=== PATIENT | male | born 1980 | race American Indian/Alaskan Native ===

== ENCOUNTER 2018-06-15 19:11 | Inpatient (IN) | payer OTHER ==
[2018-06-15] MEDS ORDERED: Sodium Chloride 0.9% 1,000 ML IV ONE (20:13)
[2018-06-15] MEDS ORDERED: Sodium Chloride 0.9% 1,000 ML ONE (20:28)
--- NOTE | 2018-06-15 20:41 | C.PDOC ---
History Of Present Illness 37 year old male presents to the ED c/o 1 week vesicular rash that started behind his ear and scalp are. Patient states rash has gradually spread to his body to the level of his knees. Patient is also c/o vesicular ulcers in his mouth that have now resolved. Patient had viral syndrome 1 week ago. Patient denies recent travel, sick contacts, fever, chills. Time Seen by Provider: 06/15/18 19:57 Chief Complaint (Nursing): Abnormal Skin Integrity History Per: Patient History/Exam Limitations: no limitations Onset/Duration Of Symptoms: Days Current Symptoms Are (Timing): Still Present Location Of Injury: Right: Abdomen, Arm, Chest, Forearm, Knee, Leg, Left: Abdomen, Arm, Chest, Forearm, Knee, Leg Quality Of Symptoms: Painful, Itching Recent travel outside of the [place]: No Additional History Per: Patient Past Medical History Reviewed: Historical Data, Nursing Documentation, Vital Signs Vital Signs: Last Vital Signs Temp 102.7 F H 06/15/18 19:44 Pulse 118 H 06/15/18 19:25 Resp 19 06/15/18 19:25 BP 142/85 06/15/18 19:25 Pulse Ox 99 06/15/18 22:24 - Medical History PMH: No Chronic Diseases Surgical History: No Surg Hx Family History: States: Unknown Family Hx - Social History Hx Alcohol Use: Yes Hx Substance Use: No - Immunization History Hx Tetanus Toxoid Vaccination: No Hx Influenza Vaccination: No Hx Pneumococcal Vaccination: No Review Of Systems Constitutional: Negative for: Fever, Chills Cardiovascular: Negative for: Chest Pain, Palpitations Respiratory: Negative for: Cough, Shortness of Breath Gastrointestinal: Negative for: Nausea, Vomiting, Abdominal Pain Skin: Positive for: Rash Neurological: Negative for: Weakness, Numbness Physical Exam - Physical Exam Appears: Non-toxic, No Acute Distress Skin: Warm, Dry, Rash (Impressive vesucalr rash in the 100s that starts on the head and extends all the way to the knees) Head: Atraumatic, Normacephalic Eye(s): bilateral: Normal Inspection, Other (mild conjuctival injection) Oral Mucosa: Moist, Other (no lesions, ulcers. vesicle in the buccal mucosa and hard palate) Tongue: No Lesions Lips: No Lesions Gingiva: No Ulceration Throat: Normal, No Erythema, No Exudate Neck: Normal ROM, Supple Chest: Symmetrical Cardiovascular: Rhythm Regular Respiratory: Normal Breath Sounds, No Rales, No Rhonchi, No Wheezing Gastrointestinal/Abdominal: Soft, No Tenderness, No Guarding, No Rebound Extremity: Normal ROM, No Tenderness, No Swelling Neurological/Psych: Oriented x3, Normal Speech Gait: Steady ED Course And Treatment - Laboratory Results Result Diagrams: 06/15/18 20:50 06/15/18 20:50 Lab Interpretation: Normal ECG: Interpreted By De ECG Rhythm: Sinus Rhythm O2 Sat by Pulse Oximetry: 99 (ON RA) Pulse Ox Interpretation: Normal - Radiology CXR: Interpreted by De CXR Interpretation: Yes: No Acute Disease Reevaluation Time: 22:22 Reassessment Condition: Improved - Physician Consult Information Outcome Of Conversation: 2220: d/w Dr. Floyd, Hospitalist covering self-pay pts - ok to admit. Medical Decision Making Medical Decision Making: likely acute Measles Disposition Doctor Will See Patient In The: Hospital Counseled Patient/Family Regarding: Studies Performed, Diagnosis - Disposition Disposition: HOSPITALIZED Disposition Time: 22:23 Condition: GOOD - Clinical Impression Clinical Impression: Vesicular rash, Measles - Scribe Statement The provider has reviewed the documentation as recorded by the Scribe Garry Heller All medical record entries made by the Scribe were at my direction and personally dictated by me. I have reviewed the chart and agree that the record accurately reflects my personal performance of the history, physical exam, medical decision making, and the department course for this patient. I have also personally directed, reviewed, and agree with the discharge instructions and disposition.
[2018-06-15 20:54] LABS: BASO % 0.4 % (0.0-2.0); HEMOGLOBIN 14.9 g/dL (12.0-18.0); LYMPH # 0.8 K/uL (1.0-4.3); LYMPH % 19.1 % (20.0-40.0); MEAN CELL VOLUME 92.4 fL (80.0-94.0); MEAN CORPUSCULAR HEMOGLOBIN 31.6 pg (27.0-31.0); MEAN CORPUSCULAR HGB CONC 34.2 g/dL (33.0-37.0); MEAN PLATELET VOLUME 9.5 fL (7.2-11.7); MONO # 0.5 K/uL (0.0-0.8); MONO % 12.3 % (0.0-10.0); NEUT # 2.9 K/uL (1.8-7.0); NEUT % 68.2 % (50.0-75.0); NRBC % 0.1 % (0.0-2.0); RBC 4.72 Mil/uL (4.40-5.90); RED CELL DISTRIBUTION WIDTH 12.5 % (11.5-14.5); WHITE BLOOD COUNT 4.2 K/uL (4.8-10.8)
[2018-06-15 21:08] LABS: ALB/GLOB RATIO 1.4 (1.0-2.1); ALBUMIN 4.5 g/dL (3.5-5.0); ALT/SGPT 65 U/L (21-72); AST/SGOT 75 U/L (17-59); BLOOD UREA NITROGEN 11 mg/dL (9-20); CALCIUM 9.3 mg/dl (8.6-10.4); GFR NON-AFRICAN AMERICAN > 60
[2018-06-15 21:10] LABS: INR 1.1; PROTHROMBIN TIME 12.1 SECONDS (9.7-12.2)
[2018-06-15 21:12] LABS: URINE BACTERIA RARE (<OCC); URINE BILIRUBIN NEGATIVE (NEGATIVE); URINE BLOOD 1+ (NEGATIVE); URINE CLARITY Clear (Clear); URINE COLOR Yellow (YELLOW); URINE GLUCOSE (UA) NORMAL (Normal); URINE LEUKOCYTE ESTERASE NEG Leu/uL (Negative); URINE PROTEIN NEGATIVE (NEGATIVE); URINE UROBILINOGEN NORMAL mg/dL (0.2-1.0)
[2018-06-15 21:20] LABS: B-TYPE NATRIURETIC PEPTIDE 45.5 pg/mL (0-450)
[2018-06-15] MEDS ORDERED: Potassium Chloride 10 mEq ER Tab PO STA (21:24)
[2018-06-15] MEDS ORDERED: Potassium Chloride 20 mEq ER Tab PO ONE ×2 (21:39→21:40)
--- NOTE | 2018-06-15 22:34 | CP.PCM.HP ---
<Keturah Silva - Last Filed: 06/16/18 05:37> History of Present Illness - History of Present Illness History of Present Illness: Resident History & Physical for Hospitalist Service Patient is a 37 year old male with no known past medical history presenting with chief complaint of painless, pruritic, vesicular skin lesions that began approximately 3 days prior. He states that he first noticed a single bump on the top of his head, which then progressed to bumps spread over his entire torso and lower extremities. He also admits to sore throat which began the day after the lesions appeared. Due to the sore throat, he has had loss of appetite. He does report good fluid intake. Patient is unsure of his immunization records. Patient denies sick contacts or recent travel. Denies fevers, chills, headache, dizziness, chest pain, shortness of breath, abdominal pain, changes in bowel movements, dysuria. Past medical history: none Past surgical: none Social history: social alcohol use. 2-3 cigarettes for 10 years (quit 3 months ago). daily marijuana use for 20 years (quit 1 month ago) Home medications: none Allergies: NKDA Family history: Mother (T2DM) Present on Admission - Present on Admission Any Indicators Present on Admission: No Review of Systems - Constitutional Constitutional: absent: Fatigue, Fever, Headache - EENT Eyes: absent: Change in Vision Ears: absent: Abnormal Hearing Nose/Mouth/Throat: Sore Throat - Cardiovascular Cardiovascular: absent: Chest Pain, Diaphoresis, Dyspnea - Respiratory Respiratory: absent: Cough, Hemoptysis - Gastrointestinal Gastrointestinal: absent: Abdominal Pain, Change in Bowel Habits, Constipation, Diarrhea - Genitourinary Genitourinary: absent: Dysuria - Integumentary Integumentary: New Lesions, Pruritus - Neurological Neurological: absent: Abnormal Hearing, Headaches, Weakness Past Patient History - Infectious Disease Hx of Infectious Diseases: None - Past Social History Smoking Status: Former Smoker - PSYCHIATRIC Hx Substance Use: No - SURGICAL HISTORY Hx Surgeries: No Meds Allergies/Adverse Reactions: Allergies Allergy/AdvReac Type Severity Reaction Status Date / Time No Known Allergies Allergy Unverified 06/15/18 19:25 Physical Exam - Constitutional Appears: Non-toxic, No Acute Distress - Head Exam Head Exam: ATRAUMATIC, NORMOCEPHALIC - Eye Exam Eye Exam: EOMI, Normal appearance, PERRL - ENT Exam ENT Exam: Mucous Membranes Moist, Normal Exam - Neck Exam Neck exam: Positive for: Normal Inspection. Negative for: Tenderness - Respiratory Exam Respiratory Exam: Clear to Auscultation Bilateral, NORMAL BREATHING PATTERN - Cardiovascular Exam Cardiovascular Exam: REGULAR RHYTHM, +S1, +S2 - GI/Abdominal Exam GI & Abdominal Exam: Normal Bowel Sounds, Soft. absent: Tenderness - Back Exam Back exam: rash noted - Neurological Exam Neurological exam: Alert, CN II-XII Intact, Oriented x3 - Psychiatric Exam Psychiatric exam: Normal Affect, Normal Mood - Skin Skin Exam: Dry, Rash, Urticaria, Vesicles, Warm - Expanded Skin Exam Expanded Type of lesion: Rash Distribution of rash: Generalized Description of Rash: Bullous, Urticarial Results - Vital Signs Recent Vital Signs: Last Vital Signs Temp 102.7 F H 06/15/18 19:44 Pulse 118 H 06/15/18 19:25 Resp 19 06/15/18 19:25 BP 142/85 06/15/18 19:25 Pulse Ox 99 06/15/18 22:24 - Labs Result Diagrams: 06/15/18 20:50 06/15/18 20:50 Labs: Laboratory Results - last 24 hr 06/15/18 06/15/18 06/15/18 20:50 20:50 20:50 WBC 4.2 L RBC 4.72 Hgb 14.9 Hct 43.6 MCV 92.4 MCH 31.6 H MCHC 34.2 RDW 12.5 Plt Count 145 MPV 9.5 Neut % (Auto) 68.2 Lymph % (Auto) 19.1 L [place] % (Auto) 12.3 H Eos % (Auto) 0.0 Baso % (Auto) 0.4 Neut # (Auto) 2.9 Lymph # (Auto) 0.8 L [place] # (Auto) 0.5 Eos # (Auto) 0.0 Baso # (Auto) 0.0 PT 12.1 INR 1.1 APTT 31 Sodium Potassium Chloride Carbon Dioxide Anion Gap BUN Creatinine Est GFR ( Amer) Est GFR (Non-Af Amer) Random Glucose Calcium Total Bilirubin AST ALT Alkaline Phosphatase Troponin I NT-Pro-B Natriuret Pep Total Protein Albumin Globulin Albumin/Globulin Ratio Urine Color Urine Clarity Urine pH Ur Specific [place] Urine Protein Urine Glucose (UA) Urine Ketones Urine Blood Urine Nitrate Urine Bilirubin Urine Urobilinogen Ur Leukocyte Esterase Urine WBC (Auto) Urine RBC (Auto) Urine Bacteria Influenza Typ A,B (EIA) Negative for flu a/b 06/15/18 06/15/18 20:50 21:05 WBC RBC Hgb Hct MCV MCH MCHC RDW Plt Count MPV Neut % (Auto) Lymph % (Auto) [place] % (Auto) Eos % (Auto) Baso % (Auto) Neut # (Auto) Lymph # (Auto) [place] # (Auto) Eos # (Auto) Baso # (Auto) PT INR APTT Sodium 135 Potassium 2.8 L Chloride 96 L Carbon Dioxide 27 Anion Gap 16 BUN 11 Creatinine 1.1 Est GFR ( Amer) > 60 Est GFR (Non-Af Amer) > 60 Random Glucose 112 H Calcium 9.3 Total Bilirubin 0.7 AST 75 H ALT 65 Alkaline Phosphatase 59 Troponin I < 0.0120 NT-Pro-B Natriuret Pep 45.5 Total Protein 7.6 Albumin 4.5 Globulin 3.1 Albumin/Globulin Ratio 1.4 Urine Color Yellow Urine Clarity Clear Urine pH 6.0 Ur Specific [place] 1.010 Urine Protein Negative Urine Glucose (UA) Normal Urine Ketones 1+ H Urine Blood 1+ H Urine Nitrate Negative Urine Bilirubin Negative Urine Urobilinogen Normal Ur Leukocyte Esterase Neg Urine WBC (Auto) 2 Urine RBC (Auto) 2 Urine Bacteria Rare Influenza Typ A,B (EIA) Assessment & Plan - Assessment and Plan (Free Text) Plan: Vesicular rash - Likely secondary to measles - Influenza negative - Vitamin A not indicated as patient denies recent travel - NS 100 ccs/hr - Diphenhydramine cream topical PRN - Respiratory isolation Fever - 102.7 on admission - CXR shows no active disease - Tylenol 650 mg PO Q6 PRN - Followup blood cultures Hypokalemia - 40 meq PO x2 given - Continue to monitor and replete PPX - OOB to chair - No GI prophylaxis indicated at this time Keturah Silva PGY-1 - Date & Time Date: 06/16/18 Time: 23:30 <Andre Floyd - Last Filed: 06/16/18 06:17> Results - Vital Signs Recent Vital Signs: Last Vital Signs Temp 97.9 F 06/16/18 01:52 Pulse 98 H 06/16/18 01:52 Resp 20 06/16/18 01:52 BP 158/67 H 06/16/18 01:52 Pulse Ox 98 06/16/18 01:52 - Labs Result Diagrams: 06/15/18 20:50 06/15/18 20:50 Labs: Laboratory Results - last 24 hr 06/15/18 06/15/18 06/15/18 20:50 20:50 20:50 WBC 4.2 L RBC 4.72 Hgb 14.9 Hct 43.6 MCV 92.4 MCH 31.6 H MCHC 34.2 RDW 12.5 Plt Count 145 MPV 9.5 Neut % (Auto) 68.2 Lymph % (Auto) 19.1 L [place] % (Auto) 12.3 H Eos % (Auto) 0.0 Baso % (Auto) 0.4 Neut # (Auto) 2.9 Lymph # (Auto) 0.8 L [place] # (Auto) 0.5 Eos # (Auto) 0.0 Baso # (Auto) 0.0 PT 12.1 INR 1.1 APTT 31 Sodium Potassium Chloride Carbon Dioxide Anion Gap BUN Creatinine Est GFR ( Amer) Est GFR (Non-Af Amer) Random Glucose Calcium Phosphorus Magnesium Total Bilirubin AST ALT Alkaline Phosphatase Troponin I NT-Pro-B Natriuret Pep Total Protein Albumin Globulin Albumin/Globulin Ratio Urine Color Urine Clarity Urine pH Ur Specific [place] Urine Protein Urine Glucose (UA) Urine Ketones Urine Blood Urine Nitrate Urine Bilirubin Urine Urobilinogen Ur Leukocyte Esterase Urine WBC (Auto) Urine RBC (Auto) Urine Bacteria Influenza Typ A,B (EIA) Negative for flu a/b 06/15/18 06/15/18 06/16/18 20:50 21:05 00:55 WBC RBC Hgb Hct MCV MCH MCHC RDW Plt Count MPV Neut % (Auto) Lymph % (Auto) [place] % (Auto) Eos % (Auto) Baso % (Auto) Neut # (Auto) Lymph # (Auto) [place] # (Auto) Eos # (Auto) Baso # (Auto) PT INR APTT Sodium 135 Potassium 2.8 L Chloride 96 L Carbon Dioxide 27 Anion Gap 16 BUN 11 Creatinine 1.1 Est GFR ( Amer) > 60 Est GFR (Non-Af Amer) > 60 Random Glucose 112 H Calcium 9.3 Phosphorus 3.3 Magnesium 1.9 Total Bilirubin 0.7 AST 75 H ALT 65 Alkaline Phosphatase 59 Troponin I < 0.0120 NT-Pro-B Natriuret Pep 45.5 Total Protein 7.6 Albumin 4.5 Globulin 3.1 Albumin/Globulin Ratio 1.4 Urine Color Yellow Urine Clarity Clear Urine pH 6.0 Ur Specific [place] 1.010 Urine Protein Negative Urine Glucose (UA) Normal Urine Ketones 1+ H Urine Blood 1+ H Urine Nitrate Negative Urine Bilirubin Negative Urine Urobilinogen Normal Ur Leukocyte Esterase Neg Urine WBC (Auto) 2 Urine RBC (Auto) 2 Urine Bacteria Rare Influenza Typ A,B (EIA) Assessment & Plan - Date & Time Date: 06/16/18 (I have seen and examined the patient. I agree with the findings and plan of care as documented by Dr. Silva. Patient with measles. Inquire further regarding patient's contacts and potential for transmission. IVF and supportive care. Isolation. Monitor for acute changes.) Time: 06:16 Attending/Attestation - Attestation I have personally seen and examined this patient.: Yes I have fully participated in the care of the patient.: Yes I have reviewed all pertinent clinical information: Yes
[2018-06-15] MEDS: Sodium Chloride 0.9% 1,000 ML IV SCH (23:30)
[2018-06-16] MEDS ORDERED: Potassium Chloride 20 mEq ER Tab PO STA ×2 (00:44→13:59)
[2018-06-16] MEDS ORDERED: Potassium Chloride 20 mEq ER Tab PO ONE (00:51)
[2018-06-16] MEDS ORDERED: Diphenhydramine 1% Cream (1 oz) TOP PRN (02:19)
[2018-06-16] MEDS: Sodium Chloride 0.9% 1,000 ML IV SCH ×2 (08:08→09:30)
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
[2018-06-16] MEDS: Phenol Topical 1.4% Throat Spray (180 ml) MT PRN ×4 (08:34→22:36)
--- NOTE | 2018-06-16 09:45 | RAD ---
Chest x-ray two views History: Shortness of breath. Comparison: None available. Findings: No focal infiltrate or effusion. Heart size within normal limits. Impression: No focal infiltrate or effusion.
[2018-06-16 12:06] LABS: BASO % 0.3 % (0.0-2.0); HEMOGLOBIN 13.2 g/dL (12.0-18.0); LYMPH # 0.6 K/uL (1.0-4.3); LYMPH % 15.1 % (20.0-40.0); MEAN CELL VOLUME 93.5 fL (80.0-94.0); MEAN CORPUSCULAR HEMOGLOBIN 32.1 pg (27.0-31.0); MEAN CORPUSCULAR HGB CONC 34.4 g/dL (33.0-37.0); MEAN PLATELET VOLUME 10.2 fL (7.2-11.7); MONO # 0.6 K/uL (0.0-0.8); MONO % 13.6 % (0.0-10.0); NRBC % 0.2 % (0.0-2.0); RBC 4.11 Mil/uL (4.40-5.90); RED CELL DISTRIBUTION WIDTH 12.8 % (11.5-14.5); WHITE BLOOD COUNT 4.3 K/uL (4.8-10.8)
[2018-06-16 12:34] LABS: ALB/GLOB RATIO 1.3 (1.0-2.1); ALBUMIN 3.6 g/dL (3.5-5.0); ALT/SGPT 61 U/L (21-72); AST/SGOT 74 U/L (17-59); BLOOD UREA NITROGEN 8 mg/dL (9-20); CALCIUM 8.4 mg/dl (8.6-10.4); GFR NON-AFRICAN AMERICAN > 60
[2018-06-16 12:35] LABS: BARBITURATES, UR NEGATIVE (NEGATIVE); BENZODIAZEPINES, UR NEGATIVE (NEGATIVE); OPIATES, UR NEGATIVE (NEGATIVE); PHENCYCLIDINE, UR NEGATIVE (NEGATIVE)
[2018-06-16] MEDS ORDERED: Potassium & Sodium Phosphate PO STA (13:54)
--- NOTE | 2018-06-16 18:57 | CP.PCM.PN ---
Subjective - Date & Time of Evaluation Date of Evaluation: 06/16/18 Time of Evaluation: 16:00 - Subjective Subjective: dictated Objective - Vital Signs/Intake and Output Vital Signs (last 24 hours): Temp Pulse Resp BP Pulse Ox 98.1 F 80 20 147/93 H 98 06/16/18 15:05 06/16/18 15:00 06/16/18 15:00 06/16/18 15:00 06/16/18 15:00 Intake and Output: 06/16/18 06/16/18 06:59 18:59 Intake Total 800 Balance 800 - Medications Medications: Current Medications Acetaminophen (Tylenol 325mg Tab) 650 mg PO Q6 PRN PRN Reason: Fever >100.4 F Last Admin: 06/16/18 08:08 Dose: 650 mg Heparin Sodium (Porcine) (Heparin) 5,000 units SC Q8 PENDING SALE TO [facility] Last Admin: 06/16/18 15:03 Dose: Not Given Potassium Chloride 20 meq/ (Sodium Chloride) 1,010 mls @ 100 mls/hr IV .Q10H6M PENDING SALE TO [facility] Last Admin: 06/16/18 15:03 Dose: 100 mls/hr Acyclovir 800 mg/ Sodium (Chloride) 100 mls @ 100 mls/hr IV Q8H RAUL PRN Reason: Protocol Ibuprofen (Motrin Tab) 600 mg PO TID PRN PRN Reason: Fever >100.4 F Last Admin: 06/16/18 12:01 Dose: 600 mg Phenol/Menthol (Phenaseptic 1.4% Throat [place]) 0 ml MT Q2H PRN PRN Reason: Sore Throat Last Admin: 06/16/18 15:04 Dose: 1 spr Zinc Acetate/Diphenhydramine (Benadryl 1% Zinc Acetate -0.1%) 1 cre TOP Q8H PRN PRN Reason: Itching / Pruritus - Labs Labs: 06/16/18 11:37 06/16/18 11:37 PT 12.1 SECONDS (9.7-12.2) 06/15/18 20:50 INR 1.1 06/15/18 20:50 APTT 31 SECONDS (21-34) 06/15/18 20:50
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
--- NOTE | 2018-06-17 03:24 | CON ---
Copied To: Charito Burns MD Attending MD: Charito Burns MD DATE: 06/16/2018 INFECTIOUS DISEASE CONSULTATION REQUESTED BY: Marlee Lewis DO HISTORY OF PRESENT ILLNESS: This patient is a 37-year-old male. He was admitted with a chief complaint of rash which started three days before this admission, which was on 06/15/2018. He saw some bumps on his head and behind his ear, and they started to get worse and then spread to all over his face. He also admits to sore throat, which began a day before the lesions, and he had loss of appetite because of that. The patient has rash now all over his body. It is most extensive on the face and the back. He denies any fever now. No chills. He has no headaches. No chest pain. No shortness of breath. No abdominal pain. No nausea. No vomiting. No recent travel anywhere. He says he lives alone. He is not . He has a girlfriend. He denies any HIV disease. He denies any history of sexually transmitted disease. He denies any travel anywhere. 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 PAST MEDICAL HISTORY: Unremarkable. Past medical history is significant for no skin infections in the past. PAST SURGICAL HISTORY: No surgical history. His surgical history is negative. IMMUNIZATION HISTORY: He has had proper immunizations, he says. SOCIAL HISTORY: [place] was [place] this [place]. He smokes two to three cigarettes for 10 years, quit three months ago. He did use daily marijuana, used for 20 years and quit one month ago. He is a former smoker. He does use marijuana. Denies other substance abuse. HOME MEDICATIONS: He takes none. ALLERGIES: HE IS NOT ALLERGIC TO ANY MEDICINES. FAMILY HISTORY: Mother having diabetes type 2. REVIEW OF SYSTEM: He denies any other complaints. He did come in, and he is in isolation. Denies any nausea or vomiting. He did have sore throat. He has some puffiness on his face especially in the parotid area. There are no oral sores. No lip sores. Denies any chest pain. No shortness of breath. No abdominal pain, nausea, vomiting, or diarrhea. No urinary complaints. He does have pruritus and painful lesions, and he feels like itching. PHYSICAL EXAMINATION: VITAL SIGNS: I find his temperature, he did have 102.5 yesterday. Actually, he had 103 this morning, and now his temperature is 98.1. Blood pressure is 147/93, respirations are 20, heart rate is 80. GENERAL: He is awake, alert, able to give his complaints. He is on airborne precautions. HEENT: Head is atraumatic and normocephalic. He has maculopapular lesions on the face, which are pretty extensive and more extensive on the back than the chest. They are all over his body. Some lesions appear vesicular, and they may be chicken pox. Back ones, some of them appear necrotic base, but ulcerating. He denies any shortness of breath. HEENT: Head is atraumatic. Has extensive lesions on the face. Since he is male, his skin is dark colored. It is hard to differentiate on the face any vesicles. NECK: Supple. JVP is flat. LUNGS: Clear. No crackles or rales present. HEART: S1 and S2 are regular. No murmurs appreciated. ABDOMEN: Soft. Nontender. No guarding. No rigidity present. EXTREMITIES: The thigh lesions do appear vesicular, and they appear like chicken pox, but the back lesions are very necrotic. LABORATORY DATA: White count is 4.3, hemoglobin 13.2, hematocrit 38.4, platelet count is 126; it is decreasing. His sodium is 135, potassium is low at 3.1, chlorides are 100, CO2 is 24, anion gap is 14, BUN is 8, creatinine is 1. ASSESSMENT AND PLAN: He is a 37-year-old male. I am waiting for the further reports. It appears to be a viral episode and viral illness with fevers and rash, but I want to do tests to rule out vasculitis, human immunodeficiency virus. Rapid plasma reagin is negative. Procalcitonin is 0.26. This is not a bacterial rash. At this time, I would start him on acyclovir that we cover for varicella. We are looking for measles, rickettsia, varicella zoster. We will put him on acylovir at this time at 800 mg and we will follow. Also to keep him hydrated with intravenous fluids because the lesions are pretty extensive lesions at this time, so we will start him on acyclovir. He also needs supplement of his potassium. Keep him in isolation as he is. We will follow. Charito Burns MD
[2018-06-17 08:16] LABS: HEPATITIS B SURFACE AG Negative (NEGATIVE)
[2018-06-17 08:22] LABS: HEPATITIS A IGM NEGATIVE (NEGATIVE); HEPATITIS B CORE AB NEGATIVE (NEGATIVE)
[2018-06-17 08:33] LABS: HEPATITIS C ANTIBODY NEGATIVE (NEGATIVE)
[2018-06-17 11:30] LABS: BASO # 0.1 K/uL (0.0-0.2); BASO % 0.9 % (0.0-2.0); HEMOGLOBIN 12.7 g/dL (12.0-18.0); LYMPH # 1.4 K/uL (1.0-4.3); LYMPH % 21.8 % (20.0-40.0); MEAN CORPUSCULAR HEMOGLOBIN 32.3 pg (27.0-31.0); MEAN CORPUSCULAR HGB CONC 34.8 g/dL (33.0-37.0); MEAN PLATELET VOLUME 10.9 fL (7.2-11.7); MONO % 16.4 % (0.0-10.0); NEUT # 3.8 K/uL (1.8-7.0); NEUT % 60.9 % (50.0-75.0); RBC 3.93 Mil/uL (4.40-5.90); RED CELL DISTRIBUTION WIDTH 13.3 % (11.5-14.5); WHITE BLOOD COUNT 6.2 K/uL (4.8-10.8)
[2018-06-17 11:43] LABS: ALB/GLOB RATIO 1.2 (1.0-2.1); ALBUMIN 3.4 g/dL (3.5-5.0); ALT/SGPT 67 U/L (21-72); AST/SGOT 82 U/L (17-59); BLOOD UREA NITROGEN 7 mg/dL (9-20); CALCIUM 8.5 mg/dl (8.6-10.4); GFR NON-AFRICAN AMERICAN > 60
[2018-06-17] MEDS ORDERED: Potassium Chloride 20 mEq ER Tab PO STA (13:02)
--- NOTE | 2018-06-18 08:06 | CARD ---
APPROVED REPORT Date of service: 06/15/2018 EKG Measurement Heart [id number] <Conclusion> Normal sinus rhythm Normal ECG
[2018-06-18 08:13] LABS: BASO # 0.1 K/uL (0.0-0.2); BASO % 0.8 % (0.0-2.0); HEMOGLOBIN 12.6 g/dL (12.0-18.0); LYMPH # 2.6 K/uL (1.0-4.3); LYMPH % 39.3 % (20.0-40.0); MEAN CELL VOLUME 93.3 fL (80.0-94.0); MEAN CORPUSCULAR HEMOGLOBIN 32.4 pg (27.0-31.0); MEAN CORPUSCULAR HGB CONC 34.7 g/dL (33.0-37.0); MEAN PLATELET VOLUME 10.9 fL (7.2-11.7); MONO # 1.5 K/uL (0.0-0.8); MONO % 22.8 % (0.0-10.0); NEUT # 2.5 K/uL (1.8-7.0); NEUT % 37.1 % (50.0-75.0); NRBC % 0.1 % (0.0-2.0); PLATELET COUNT 136 K/uL (130-400); RBC 3.88 Mil/uL (4.40-5.90); RED CELL DISTRIBUTION WIDTH 13.2 % (11.5-14.5); WHITE BLOOD COUNT 6.7 K/uL (4.8-10.8)
[2018-06-18 08:36] LABS: ALB/GLOB RATIO 1.2 (1.0-2.1); ALBUMIN 3.4 g/dL (3.5-5.0); ALT/SGPT 59 U/L (21-72); AST/SGOT 70 U/L (17-59); BLOOD UREA NITROGEN 8 mg/dL (9-20); CALCIUM 8.4 mg/dl (8.6-10.4); GFR NON-AFRICAN AMERICAN > 60
[2018-06-18 09:04] LABS: BANDS 1 % (0-2); REACTIVE LYMPHOCYTES 4 % (0-0); TOTAL CELLS COUNTED 100
[2018-06-18 09:05] LABS: LYMPHOCYTE 38 % (20-40); MONOCYTE 20 % (0-10); NEUTROPHIL 37 % (50-75); PLATELET ESTIMATE NORMAL (NORMAL)
--- NOTE | 2018-06-18 13:17 | CP.PCM.PN ---
<Keturah Silva L - Last Filed: 06/18/18 18:15> Subjective - Date & Time of Evaluation Date of Evaluation: 06/18/18 Time of Evaluation: 09:00 - Subjective Subjective: Resident Progress Note for Hospitalist Service Patient examined at bedside. No acute events overnight. States that he is feeling much better today, with improvement in his pruritus and sore throat. States that his fever and chills have resolved. Denies chest pain, shortness of breath, abdominal pain, changes in bowel movements, dysuria. Objective - Vital Signs/Intake and Output Vital Signs (last 24 hours): Temp Pulse Resp BP Pulse Ox 99.2 F 87 20 139/80 99 06/18/18 07:10 06/18/18 07:10 06/18/18 07:10 06/18/18 07:10 06/18/18 07:10 - Medications Medications: Current Medications Acetaminophen (Tylenol 325mg Tab) 650 mg PO Q6 PRN PRN Reason: Fever >100.4 F Last Admin: 06/18/18 03:50 Dose: 650 mg Heparin Sodium (Porcine) (Heparin) 5,000 units SC Q8 [facility] Last Admin: 06/18/18 06:43 Dose: Not Given Potassium Chloride 20 meq/ (Sodium Chloride) 1,010 mls @ 100 mls/hr IV .Q10H6M [facility] Last Admin: 06/18/18 09:43 Dose: 100 mls/hr Acyclovir 800 mg/ Sodium (Chloride) 250 mls @ 100 mls/hr IV Q8H RAUL PRN Reason: Protocol Last Admin: 06/18/18 09:44 Dose: 100 mls/hr Ibuprofen (Motrin Tab) 600 mg PO TID PRN PRN Reason: Fever >100.4 F Last Admin: 06/17/18 08:23 Dose: 600 mg Phenol/Menthol (Phenaseptic 1.4% Throat [place]) 0 ml MT Q2H PRN PRN Reason: Sore Throat Last Admin: 06/16/18 22:36 Dose: 1 spr Zinc Acetate/Diphenhydramine (Benadryl 1% Zinc Acetate -0.1%) 1 cre TOP Q8H PRN PRN Reason: Itching / Pruritus - Labs Labs: 06/18/18 07:57 06/18/18 07:57 PT 12.1 SECONDS (9.7-12.2) 06/15/18 20:50 INR 1.1 06/15/18 20:50 APTT 31 SECONDS (21-34) 06/15/18 20:50 - Additional Findings Additional findings: - Constitutional Appears: Non-toxic, No Acute Distress - Head Exam Head Exam: ATRAUMATIC, NORMOCEPHALIC - Eye Exam Eye Exam: EOMI, Normal appearance, PERRL - ENT Exam ENT Exam: Mucous Membranes Moist Additional comments: white vesicular lesions in oral mucosa - Neck Exam Neck exam: Positive for: Normal Inspection. Negative for: Tenderness - Respiratory Exam Respiratory Exam: Clear to Auscultation Bilateral, NORMAL BREATHING PATTERN - Cardiovascular Exam Cardiovascular Exam: REGULAR RHYTHM, +S1, +S2 - GI/Abdominal Exam GI & Abdominal Exam: Normal Bowel Sounds, Soft. absent: Tenderness - Back Exam Back exam: rash noted (improved) - Neurological Exam Neurological exam: Alert, Oriented x3 - Psychiatric Exam Psychiatric exam: Anxious - Skin Skin Exam: Dry, Rash, Urticaria, Vesicles, Warm (improved) - Expanded Skin Exam Expanded Type of lesion: Rash Distribution of rash: Generalized Description of Rash: Bullous, Urticarial Assessment and Plan - Assessment and Plan (Free Text) Plan: Vesicular rash - Likely secondary to measles - Patient states vaccinations are up to date - RPR, influenza, Group A strep Ag negative - Mumps virus IgG Ab positive - Vitamin A not indicated as patient denies recent travel - NS 100 ccs/hr - Diphenhydramine cream topical PRN - Contact, airborne precautions - ID consulted. Appreciate recs. - Acyclovir 800 mg IV Q8H - Followup MMR, varicella Fever - Tmax overnight 103 - CXR shows no focal infiltrate or effusion - Alternate Tylenol 650 mg PO Q6 PRN temp>100.4, Motrin 600 mg PO TID PRN temp> 100.4 - Procal 0.26 - Blood cultures x2 no growth - Throat culture shows no group A strep - Urine culture shows no growth - Followup repeat sputum culture Transaminits- improving - Hepatitis panel, HIV negative - Continue to monitor Hypokalemia - Continue to monitor and replete PPX - Heparin 5000 units SC Q8H - No GI prophylaxis indicated at this time Keturah Silva PGY-1 <Marlee Lewis V - Last Filed: 06/18/18 21:57> Objective - Vital Signs/Intake and Output Vital Signs (last 24 hours): Temp Pulse Resp BP Pulse Ox 99.5 F 81 20 169/100 H 99 06/18/18 15:00 06/18/18 15:00 06/18/18 15:00 06/18/18 15:00 06/18/18 15:00 Intake and Output: 06/18/18 06/18/18 06:59 18:59 Intake Total 250 Balance 250 - Medications Medications: Current Medications Acetaminophen (Tylenol 325mg Tab) 650 mg PO Q6 PRN PRN Reason: Fever >100.4 F Last Admin: 06/18/18 03:50 Dose: 650 mg Heparin Sodium (Porcine) (Heparin) 5,000 units SC Q8 RAUL Last Admin: 06/18/18 14:33 Dose: Not Given Hydralazine HCl (Apresoline) 10 mg IVP STAT STA Stop: 06/18/18 18:34 Potassium Chloride 20 meq/ (Sodium Chloride) 1,010 mls @ 100 mls/hr IV .Q10H6M [facility] Last Admin: 06/18/18 17:35 Dose: Not Given Acyclovir 800 mg/ Sodium (Chloride) 250 mls @ 100 mls/hr IV Q8H RAUL PRN Reason: Protocol Last Admin: 06/18/18 17:32 Dose: 100 mls/hr Ibuprofen (Motrin Tab) 600 mg PO TID PRN PRN Reason: Fever >100.4 F Last Admin: 06/17/18 08:23 Dose: 600 mg Phenol/Menthol (Phenaseptic 1.4% Throat [place]) 0 ml MT Q2H PRN PRN Reason: Sore Throat Last Admin: 06/16/18 22:36 Dose: 1 spr Zinc Acetate/Diphenhydramine (Benadryl 1% Zinc Acetate -0.1%) 1 cre TOP Q8H PRN PRN Reason: Itching / Pruritus - Labs Labs: 06/18/18 07:57 06/18/18 07:57 PT 12.1 SECONDS (9.7-12.2) 06/15/18 20:50 INR 1.1 06/15/18 20:50 APTT 31 SECONDS (21-34) 06/15/18 20:50 - Eye Exam Eye Exam: EOMI - ENT Exam ENT Exam: Mucous Membranes Moist - Respiratory Exam Respiratory Exam: Clear to Ausculation Bilateral, NORMAL BREATHING PATTERN. absent: Rales, Rhonchi, Wheezes - Cardiovascular Exam Cardiovascular Exam: REGULAR RHYTHM, +S1, +S2 - GI/Abdominal Exam GI & Abdominal Exam: Soft, Normal Bowel Sounds. absent: Distended, Firm, Guarding, Rigid, Tenderness, Rebound - Extremities Exam Extremities Exam: absent: Pedal Edema, Tenderness - Neurological Exam Neurological Exam: Alert, Awake, Oriented x3 - Skin Skin Exam: Rash, Warm. absent: Mottled, Pallor, Petechiae, Urticaria, Vesicles Attending/Attestation - Attestation I have personally seen and examined this patient.: Yes I have fully participated in the care of the patient.: Yes I have reviewed all pertinent clinical information, including history, physical exam and plan: Yes
[2018-06-18] MEDS ORDERED: Pneumococcal 23-Valent Vaccine IM ONE (14:00)
--- NOTE | 2018-06-18 20:22 | CP.PCM.PN ---
Subjective - Date & Time of Evaluation Date of Evaluation: 06/18/18 Time of Evaluation: 17:00 - Subjective Subjective: Dictated Objective - Vital Signs/Intake and Output Vital Signs (last 24 hours): Temp Pulse Resp BP Pulse Ox 99.5 F 81 20 161/95 H 99 06/18/18 15:00 06/18/18 15:00 06/18/18 15:00 06/18/18 18:49 06/18/18 15:00 Intake and Output: 06/18/18 06/19/18 18:59 06:59 Intake Total 250 Balance 250 - Medications Medications: Current Medications Acetaminophen (Tylenol 325mg Tab) 650 mg PO Q6 PRN PRN Reason: Fever >100.4 F Last Admin: 06/18/18 03:50 Dose: 650 mg Heparin Sodium (Porcine) (Heparin) 5,000 units SC Q8 [facility] Last Admin: 06/18/18 14:33 Dose: Not Given Potassium Chloride 20 meq/ (Sodium Chloride) 1,010 mls @ 100 mls/hr IV .Q10H6M [facility] Last Admin: 06/18/18 17:35 Dose: Not Given Acyclovir 800 mg/ Sodium (Chloride) 250 mls @ 100 mls/hr IV Q8H RAUL PRN Reason: Protocol Last Admin: 06/18/18 17:32 Dose: 100 mls/hr Ibuprofen (Motrin Tab) 600 mg PO TID PRN PRN Reason: Fever >100.4 F Last Admin: 06/17/18 08:23 Dose: 600 mg Phenol/Menthol (Phenaseptic 1.4% Throat [place]) 0 ml MT Q2H PRN PRN Reason: Sore Throat Last Admin: 06/16/18 22:36 Dose: 1 spr Zinc Acetate/Diphenhydramine (Benadryl 1% Zinc Acetate -0.1%) 1 cre TOP Q8H PRN PRN Reason: Itching / Pruritus - Labs Labs: 06/18/18 07:57 06/18/18 07:57 PT 12.1 SECONDS (9.7-12.2) 06/15/18 20:50 INR 1.1 06/15/18 20:50 APTT 31 SECONDS (21-34) 06/15/18 20:50
--- NOTE | 2018-06-19 02:02 | PN ---
Copied To: Charito Burns MD Attending MD: Charito Burns MD DATE: 06/18/2018 INFECTIOUS DISEASE FOLLOWUP SUBJECTIVE: The patient still continues to have fever. OBJECTIVE: He had 103 this morning, but right now, he is 99.2; pulse is 87; blood pressure is 139/80; respirations are 20. Head is atraumatic, normocephalic. The lesion on the face appear vesicular and also on the legs. He has a poor appetite. He denies any shortness of breath. Neck is supple. Lungs are clear. Heart: S1, S2 is regular. Abdomen is soft, nontender. Extremities: He has generalized rash. To me, it appears vesicular, and I think probably it is chickenpox but he says he has had chickenpox in the past, measles, IgM titer is pending at this time. However, I will continue on acyclovir for now, and monitor his creatinine, and would leave him on IV fluids. IMPRESSION: He has a viral illness and with generalized rash. He needs to be isolated which he will, and the rash appears to be slightly cloth drier than before, and hopefully, this will improve. He has no dyspnea, and we will continue present treatment. Charito Burns MD
--- NOTE | 2018-06-19 06:57 | CP.PCM.PN ---
<Keturah Silva L - Last Filed: 06/19/18 18:39> Subjective - Date & Time of Evaluation Date of Evaluation: 06/19/18 Time of Evaluation: 06:56 - Subjective Subjective: Resident Progress Note for Hospitalist Service Patient examined at bedside. No acute events overnight. Denies fever and chills. States he is still having lack of appetite however he has good oral intake of fluids. His sore throat is improved as well. Denies chest pain, shortness of breath, abdominal pain, changes in bowel movements, dysuria. Objective - Vital Signs/Intake and Output Vital Signs (last 24 hours): Temp Pulse Resp BP Pulse Ox 98.7 F 94 H 20 156/96 H 99 06/19/18 00:00 06/19/18 00:00 06/19/18 00:00 06/19/18 00:00 06/19/18 00:00 Intake and Output: 06/18/18 06/19/18 18:59 06:59 Intake Total 250 1600 Balance 250 1600 - Medications Medications: Current Medications Acetaminophen (Tylenol 325mg Tab) 650 mg PO Q6 PRN PRN Reason: Fever >100.4 F Last Admin: 06/18/18 03:50 Dose: 650 mg Heparin Sodium (Porcine) (Heparin) 5,000 units SC Q8 [facility] Last Admin: 06/19/18 05:43 Dose: Not Given Potassium Chloride 20 meq/ (Sodium Chloride) 1,010 mls @ 100 mls/hr IV .Q10H6M [facility] Last Admin: 06/19/18 03:50 Dose: Not Given Acyclovir 800 mg/ Sodium (Chloride) 250 mls @ 100 mls/hr IV Q8H [facility]UL PRN Reason: Protocol Last Admin: 06/19/18 01:24 Dose: 100 mls/hr Ibuprofen (Motrin Tab) 600 mg PO TID PRN PRN Reason: Fever >100.4 F Last Admin: 06/17/18 08:23 Dose: 600 mg Phenol/Menthol (Phenaseptic 1.4% Throat [place]) 0 ml MT Q2H PRN PRN Reason: Sore Throat Last Admin: 06/16/18 22:36 Dose: 1 spr Zinc Acetate/Diphenhydramine (Benadryl 1% Zinc Acetate -0.1%) 1 cre TOP Q8H PRN PRN Reason: Itching / Pruritus - Labs Labs: 06/18/18 07:57 06/18/18 07:57 PT 12.1 SECONDS (9.7-12.2) 06/15/18 20:50 INR 1.1 06/15/18 20:50 APTT 31 SECONDS (21-34) 06/15/18 20:50 - Additional Findings Additional findings: - Constitutional Appears: Non-toxic, No Acute Distress - Head Exam Head Exam: ATRAUMATIC, NORMOCEPHALIC - Eye Exam Eye Exam: EOMI, Normal appearance, PERRL - ENT Exam ENT Exam: Mucous Membranes Moist Additional comments: white vesicular lesions in oral mucosa - Neck Exam Neck exam: Positive for: Normal Inspection. Negative for: Tenderness - Respiratory Exam Respiratory Exam: Clear to Auscultation Bilateral, NORMAL BREATHING PATTERN - Cardiovascular Exam Cardiovascular Exam: REGULAR RHYTHM, +S1, +S2 - GI/Abdominal Exam GI & Abdominal Exam: Normal Bowel Sounds, Soft. absent: Tenderness - Back Exam Back exam: rash noted (improved) - Neurological Exam Neurological exam: Alert, Oriented x3 - Psychiatric Exam Psychiatric exam: Anxious - Skin Skin Exam: Dry, Maculopapular rash Additional comments: Generalized maculopapular rash on head, neck, torso extending to lower extremities. Raised erythematous papules in different stages of healing with some crusting. Assessment and Plan - Assessment and Plan (Free Text) Plan: Vesicular rash - Measles vs. chickenpox - Patient states vaccinations are up to date - RPR, influenza, Group A strep Ag negative - Mumps virus IgG Ab positive - Vitamin A not indicated as patient denies recent travel - NS 100 ccs/hr - Diphenhydramine cream topical PRN - Contact, airborne precautions - ID consulted. Recs appreciated. - Acyclovir 800 mg IV Q8H - Followup MMR, varicella Fever - Tmax overnight 99.9 - CXR shows no focal infiltrate or effusion - Alternate Tylenol 650 mg PO Q6 PRN temp>100.4, Motrin 600 mg PO TID PRN temp> 100.4 - Procal 0.26 - Blood cultures x2 no growth - Throat culture shows no group A strep - Urine culture shows no growth - Followup repeat sputum culture Transaminits- improving - Hepatitis panel, HIV negative - Continue to monitor Hypokalemia - Continue to monitor and replete PPX - Heparin 5000 units SC Q8H - No GI prophylaxis indicated at this time Keturah Silva PGY-1 <Raleigh Hester - Last Filed: 06/19/18 19:01> Objective - Vital Signs/Intake and Output Vital Signs (last 24 hours): Temp Pulse Resp BP Pulse Ox 98.4 F 70 20 157/95 H 99 06/19/18 15:00 06/19/18 15:00 06/19/18 15:00 06/19/18 17:37 06/19/18 15:00 Intake and Output: 06/19/18 06/19/18 06:59 18:59 Intake Total 1600 1000 Balance 1600 1000 - Medications Medications: Current Medications Acetaminophen (Tylenol 325mg Tab) 650 mg PO Q6 PRN PRN Reason: Fever >100.4 F Last Admin: 06/18/18 03:50 Dose: 650 mg Heparin Sodium (Porcine) (Heparin) 5,000 units SC Q8 [facility] Last Admin: 06/19/18 14:39 Dose: Not Given Potassium Chloride 20 meq/ (Sodium Chloride) 1,010 mls @ 100 mls/hr IV .Q10H6M [facility] Last Admin: 06/19/18 14:37 Dose: 100 mls/hr Acyclovir 800 mg/ Sodium (Chloride) 250 mls @ 100 mls/hr IV Q8H [facility] PRN Reason: Protocol Last Admin: 06/19/18 16:19 Dose: 100 mls/hr Ibuprofen (Motrin Tab) 600 mg PO TID PRN PRN Reason: Fever >100.4 F Last Admin: 06/17/18 08:23 Dose: 600 mg Metoprolol Tartrate (Lopressor) 25 mg PO BID [facility] Last Admin: 06/19/18 17:37 Dose: 25 mg Phenol/Menthol (Phenaseptic 1.4% Throat [place]) 0 ml MT Q2H PRN PRN Reason: Sore Throat Last Admin: 06/16/18 22:36 Dose: 1 spr Zinc Acetate/Diphenhydramine (Benadryl 1% Zinc Acetate -0.1%) 1 cre TOP Q8H PRN PRN Reason: Itching / Pruritus - Labs Labs: 06/19/18 07:47 06/19/18 07:47 PT 12.1 SECONDS (9.7-12.2) 06/15/18 20:50 INR 1.1 06/15/18 20:50 APTT 31 SECONDS (21-34) 06/15/18 20:50 Attending/Attestation - Attestation I have personally seen and examined this patient.: Yes I have fully participated in the care of the patient.: Yes I have reviewed all pertinent clinical information, including history, physical exam and plan: Yes Notes (Text): 06/19/18 18:55 Patient was seen and examined 11:00 AM 06/19/18 567 P Care of this patient was gone over in detail with the resident Also on ROS: Complained of posterior headache Plan is for punch biopsy on 06/20/18 Will follow up HSV 1 and 2, Varicella IgM, and Measels IgM Raleigh Hester D.O.
[2018-06-19 07:54] LABS: BASO # 0.1 K/uL (0.0-0.2); BASO % 1.1 % (0.0-2.0); EOS % 0.4 % (0.0-4.0); HEMOGLOBIN 13.2 g/dL (12.0-18.0); LYMPH # 2.4 K/uL (1.0-4.3); LYMPH % 42.8 % (20.0-40.0); MEAN CELL VOLUME 93.1 fL (80.0-94.0); MEAN CORPUSCULAR HEMOGLOBIN 32.2 pg (27.0-31.0); MEAN CORPUSCULAR HGB CONC 34.6 g/dL (33.0-37.0); MEAN PLATELET VOLUME 10.3 fL (7.2-11.7); MONO # 1.1 K/uL (0.0-0.8); MONO % 19.3 % (0.0-10.0); NEUT % 36.4 % (50.0-75.0); NRBC % 0.1 % (0.0-2.0); RBC 4.11 Mil/uL (4.40-5.90); RED CELL DISTRIBUTION WIDTH 13.4 % (11.5-14.5); WHITE BLOOD COUNT 5.6 K/uL (4.8-10.8)
[2018-06-19 08:17] LABS: ALB/GLOB RATIO 1.2 (1.0-2.1); ALBUMIN 3.7 g/dL (3.5-5.0); ALT/SGPT 57 U/L (21-72); AST/SGOT 62 U/L (17-59); BLOOD UREA NITROGEN 7 mg/dL (9-20); CALCIUM 9.1 mg/dl (8.6-10.4); GFR NON-AFRICAN AMERICAN > 60
--- NOTE | 2018-06-20 07:04 | CP.PCM.PN ---
<Keturah Silva L - Last Filed: 06/20/18 19:23> Subjective - Date & Time of Evaluation Date of Evaluation: 06/20/18 Time of Evaluation: 07:03 - Subjective Subjective: Resident Progress Note for Hospitalist Service Patient examined at bedside. No acute events overnight. Patient is s/p punch biopsy. States that he has a intermittent headache that extends to his posterior cervical region. Denies dizziness, hearing or vision changes, weakness , numbness, or other changes in sensation. He states his appetite has returned and he is eating and drinking well now. Denies chest pain, shortness of breath, abdominal pain, changes in bowel movements, dysuria. Objective - Vital Signs/Intake and Output Vital Signs (last 24 hours): Temp Pulse Resp BP Pulse Ox 98.4 F 75 20 152/92 H 99 06/19/18 23:11 06/19/18 23:11 06/19/18 23:11 06/19/18 23:11 06/19/18 23:11 Intake and Output: 06/20/18 06/20/18 06:59 18:59 Intake Total 1600 Balance 1600 - Medications Medications: Current Medications Acetaminophen (Tylenol 325mg Tab) 650 mg PO Q6 PRN PRN Reason: Fever >100.4 F Last Admin: 06/20/18 00:03 Dose: 650 mg Heparin Sodium (Porcine) (Heparin) 5,000 units SC Q8 [facility] Last Admin: 06/20/18 05:44 Dose: Not Given Potassium Chloride 20 meq/ (Sodium Chloride) 1,010 mls @ 100 mls/hr IV .Q10H6M [facility] Last Admin: 06/19/18 22:13 Dose: Not Given Acyclovir 800 mg/ Sodium (Chloride) 250 mls @ 100 mls/hr IV Q8H [facility] PRN Reason: Protocol Last Admin: 06/20/18 02:17 Dose: 100 mls/hr Ibuprofen (Motrin Tab) 600 mg PO TID PRN PRN Reason: Fever >100.4 F Last Admin: 06/17/18 08:23 Dose: 600 mg Metoprolol Tartrate (Lopressor) 25 mg PO BID [facility] Last Admin: 06/19/18 17:37 Dose: 25 mg Phenol/Menthol (Phenaseptic 1.4% Throat [place]) 0 ml MT Q2H PRN PRN Reason: Sore Throat Last Admin: 06/16/18 22:36 Dose: 1 spr Zinc Acetate/Diphenhydramine (Benadryl 1% Zinc Acetate -0.1%) 1 cre TOP Q8H PRN PRN Reason: Itching / Pruritus - Labs Labs: 06/19/18 07:47 06/19/18 07:47 PT 12.1 SECONDS (9.7-12.2) 06/15/18 20:50 INR 1.1 06/15/18 20:50 APTT 31 SECONDS (21-34) 06/15/18 20:50 - Additional Findings Additional findings: - Constitutional Appears: Non-toxic, No Acute Distress - Head Exam Head Exam: ATRAUMATIC, NORMOCEPHALIC - Eye Exam Eye Exam: EOMI, Normal appearance, PERRL - ENT Exam ENT Exam: Mucous Membranes Moist Additional comments: white vesicular lesions in oral mucosa - Neck Exam Neck exam: Positive for: Normal Inspection. Negative for: Tenderness - Respiratory Exam Respiratory Exam: Clear to Auscultation Bilateral, NORMAL BREATHING PATTERN - Cardiovascular Exam Cardiovascular Exam: REGULAR RHYTHM, +S1, +S2 - GI/Abdominal Exam GI & Abdominal Exam: Normal Bowel Sounds, Soft. absent: Tenderness - Back Exam Back exam: rash noted (improved) - Neurological Exam Neurological exam: Alert, Oriented x3 - Psychiatric Exam Psychiatric exam: Anxious - Skin Skin Exam: Dry, Maculopapular rash Additional comments: Generalized maculopapular rash on head, neck, torso extending to lower extremities. Raised erythematous papules in different stages of healing with some crusting. Erythema is improved. Assessment and Plan - Assessment and Plan (Free Text) Plan: Vesicular rash - Measles vs. chickenpox - Patient states vaccinations are up to date - RPR, influenza, Group A strep Ag negative - Mumps virus IgG Ab positive - Vitamin A not indicated as patient denies recent travel - NS 100 ccs/hr - Diphenhydramine cream topical PRN - Contact, airborne precautions - ID consulted. Recs appreciated. - Acyclovir 800 mg IV Q8H - Followup rubella IgG, varicella - Followup results of punch biopsy Fever - Tmax overnight 99.9 - CXR shows no focal infiltrate or effusion - Alternate Tylenol 650 mg PO Q6 PRN temp>100.4, Motrin 600 mg PO TID PRN temp> 100.4 - Procal 0.26 - Blood cultures x2 no growth - Throat culture shows no group A strep - Urine culture shows no growth - Followup repeat sputum culture Transaminits- improving - Hepatitis panel, HIV negative - Continue to monitor PPX - Heparin 5000 units SC Q8H - No GI prophylaxis indicated at this time Keturah Silva PGY-1 <Raleigh Hester - Last Filed: 06/21/18 19:17> Objective - Vital Signs/Intake and Output Vital Signs (last 24 hours): Temp Pulse Resp BP Pulse Ox 98.1 F 70 20 141/89 100 06/21/18 15:45 06/21/18 15:45 06/21/18 15:45 06/21/18 15:45 06/21/18 15:45 Intake and Output: 06/21/18 06/22/18 18:59 06:59 Intake Total 1150 Balance 1150 - Labs Labs: 06/21/18 07:01 06/21/18 07:01 PT 12.1 SECONDS (9.7-12.2) 06/15/18 20:50 INR 1.1 06/15/18 20:50 APTT 31 SECONDS (21-34) 06/15/18 20:50 Attending/Attestation - Attestation I have personally seen and examined this patient.: Yes I have fully participated in the care of the patient.: Yes I have reviewed all pertinent clinical information, including history, physical exam and plan: Yes Notes (Text): 06/21/18 19:16 This is a late entry. Care of this patient and all orders for the punch biopsy, culture, and smears were gone over with the resident. Raleigh Hester D.O.
[2018-06-20 08:36] LABS: BASO % 0.9 % (0.0-2.0); EOS # 0.1 K/uL (0.0-0.7); EOS % 1.7 % (0.0-4.0); HEMOGLOBIN 12.8 g/dL (12.0-18.0); LYMPH # 1.8 K/uL (1.0-4.3); LYMPH % 45.8 % (20.0-40.0); MEAN CELL VOLUME 93.5 fL (80.0-94.0); MEAN CORPUSCULAR HEMOGLOBIN 32.2 pg (27.0-31.0); MEAN CORPUSCULAR HGB CONC 34.4 g/dL (33.0-37.0); MEAN PLATELET VOLUME 10.3 fL (7.2-11.7); MONO # 0.6 K/uL (0.0-0.8); MONO % 15.4 % (0.0-10.0); NEUT # 1.4 K/uL (1.8-7.0); NEUT % 36.2 % (50.0-75.0); NRBC % 0.2 % (0.0-2.0); RBC 3.97 Mil/uL (4.40-5.90); RED CELL DISTRIBUTION WIDTH 13.2 % (11.5-14.5); WHITE BLOOD COUNT 3.9 K/uL (4.8-10.8)
[2018-06-20 08:47] LABS: ALB/GLOB RATIO 1.3 (1.0-2.1); ALBUMIN 3.8 g/dL (3.5-5.0); ALT/SGPT 63 U/L (21-72); AST/SGOT 62 U/L (17-59); BLOOD UREA NITROGEN 7 mg/dL (9-20); CALCIUM 8.8 mg/dl (8.6-10.4); GFR NON-AFRICAN AMERICAN > 60
[2018-06-20] MEDS ORDERED: Lidocaine Hydrochloride 10 ML INJ ONE (09:09)
--- NOTE | 2018-06-20 22:45 | CP.PCM.PN ---
Subjective - Date & Time of Evaluation Date of Evaluation: 06/20/18 Time of Evaluation: 18:30 - Subjective Subjective: dictated Objective - Vital Signs/Intake and Output Vital Signs (last 24 hours): Temp Pulse Resp BP Pulse Ox 98.4 F 75 20 149/91 H 99 06/20/18 15:00 06/20/18 15:00 06/20/18 15:00 06/20/18 17:16 06/20/18 15:00 Intake and Output: 06/20/18 06/21/18 18:59 06:59 Intake Total 1050 Balance 1050 - Medications Medications: Current Medications Acetaminophen (Tylenol 325mg Tab) 650 mg PO Q6 PRN PRN Reason: Fever >100.4 F Last Admin: 06/20/18 00:03 Dose: 650 mg Heparin Sodium (Porcine) (Heparin) 5,000 units SC Q8 [facility] Last Admin: 06/20/18 22:02 Dose: Not Given Potassium Chloride 20 meq/ (Sodium Chloride) 1,010 mls @ 100 mls/hr IV .Q10H6M [facility] Last Admin: 06/20/18 19:05 Dose: Not Given Acyclovir 800 mg/ Sodium (Chloride) 250 mls @ 100 mls/hr IV Q8H [facility] PRN Reason: Protocol Last Admin: 06/20/18 16:14 Dose: 100 mls/hr Ibuprofen (Motrin Tab) 600 mg PO TID PRN PRN Reason: Fever >100.4 F Last Admin: 06/17/18 08:23 Dose: 600 mg Metoprolol Tartrate (Lopressor) 25 mg PO BID [facility] Last Admin: 06/20/18 17:16 Dose: 25 mg Phenol/Menthol (Phenaseptic 1.4% Throat [place]) 0 ml MT Q2H PRN PRN Reason: Sore Throat Last Admin: 06/16/18 22:36 Dose: 1 spr Zinc Acetate/Diphenhydramine (Benadryl 1% Zinc Acetate -0.1%) 1 cre TOP Q8H PRN PRN Reason: Itching / Pruritus - Labs Labs: 06/20/18 08:13 06/20/18 08:13 PT 12.1 SECONDS (9.7-12.2) 06/15/18 20:50 INR 1.1 06/15/18 20:50 APTT 31 SECONDS (21-34) 06/15/18 20:50
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
[2018-06-21 07:17] LABS: BASO % 0.5 % (0.0-2.0); EOS # 0.1 K/uL (0.0-0.7); EOS % 2.2 % (0.0-4.0); HEMOGLOBIN 11.8 g/dL (12.0-18.0); LYMPH # 1.9 K/uL (1.0-4.3); LYMPH % 41.3 % (20.0-40.0); MEAN CELL VOLUME 93.6 fL (80.0-94.0); MEAN CORPUSCULAR HEMOGLOBIN 32.3 pg (27.0-31.0); MEAN CORPUSCULAR HGB CONC 34.5 g/dL (33.0-37.0); MEAN PLATELET VOLUME 10.8 fL (7.2-11.7); MONO # 0.6 K/uL (0.0-0.8); MONO % 13.4 % (0.0-10.0); NEUT % 42.6 % (50.0-75.0); NRBC % 0.1 % (0.0-2.0); RBC 3.66 Mil/uL (4.40-5.90); RED CELL DISTRIBUTION WIDTH 13.1 % (11.5-14.5); WHITE BLOOD COUNT 4.7 K/uL (4.8-10.8)
[2018-06-21 07:32] LABS: ALB/GLOB RATIO 1.1 (1.0-2.1); ALBUMIN 3.3 g/dL (3.5-5.0); ALT/SGPT 71 U/L (21-72); AST/SGOT 62 U/L (17-59); BLOOD UREA NITROGEN 7 mg/dL (9-20); CALCIUM 8.7 mg/dl (8.6-10.4); GFR NON-AFRICAN AMERICAN > 60
[2018-06-21 07:53] VITALS: RESP 20; TEMP 98.1; O2SAT 100
[2018-06-21 14:14] LABS: ANCA SCREEN NEGATIVE (NEGATIVE)
[2018-06-21 15:47] VITALS: BP 141/89; PULSE 70
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
== END 2018-06-21 17:22 | disposition home or self-care (01) | DRG 421 ==
LOC: C.ER 19:11 → SUPCPDRO 19:11 → C.9E 23:50 → C.5S 23:50
PROVIDERS: ADMIT Family Medicine; ATTEND Family Medicine
DX: B01.9 Varicella without complication (principal); D69.6 Thrombocytopenia, unspecified; E87.6 Hypokalemia; R23.8 Other skin changes; B02.9 Zoster without complications; F12.90 Cannabis use, unspecified, uncomplicated; L29.9 Pruritus, unspecified; Z83.3 Family history of diabetes mellitus; Z87.891 Personal history of nicotine dependence; Z78.9 Other specified health status